=== PATIENT | female | born 2005 | race Caucasian/White ===

== ENCOUNTER 2025-05-04 01:10 | Emergency (ER) | payer MEDICAID ==
[~2025-05-04] VITALS: Ht 175.3 cm; Wt 86.4 kg
[2025-05-04 01:41] LABS: URINE HCG NEGATIVE (NEG)
[2025-05-04 01:44] LABS: LEUKOCYTE ESTERASE ,URINE NEGATIVE (Neg); NITRITES, URINE NEGATIVE (Neg); OCCULT BLOOD,URINE TRACE-INTACT (Neg)
[2025-05-04 01:51] LABS: UA COLLECTION TYPE CLN CATCH MIDSTREAM
[2025-05-04 01:57] LABS: MUCUS STRANDS MODERATE /LPF (Neg); SQUAMOUS EPITHELIAL CELL,UR FEW /LPF (FEW)
--- NOTE | 2025-05-04 02:04 | Physician Documentation ---
History of Present Illness ~ Chief Complaint: Complications Stated Complaint: COMPLICATION Time Seen by MD: 02:03 Mode of Arrival: POV HPI Patient presents to the emergency room concern for . Last menstrual cycle one month ago. She was seen at another emergency room with a negative test by urine. She is requesting test by blood. She has reported some bleeding that began in the last two days in his become spotting. Denies any pain. Last Menstrual Period: Mar 27, 2025 Medication Reconciliation Allergies: Coded Allergies: No Known Allergies (Unverified , 05/04/25) Past Medical History Last Menstrual Period: Mar 27, 2025 Review of Systems ROS All review of systems negative except as per HPI Physical Exam Physical Exam Vital Signs: Temperature: 98.2, Heart Rate: 82, Respiratory Rate: 15, BP: 120/77, Pulse Oximetry: 100, Weight: 86.360 Oxygen Flow Rate: 0 Physical Exam General: Patient is awake, alert, oriented x4 in no acute distress and well appearing.~ Head: Normocephalic and atraumatic. Eyes: Conjunctival normal. EOMI. PERRL. ENT: Mucous membranes moist. Neck: Supple, trachea is midline. Chest: Clear to auscultation bilaterally without rales, rhonchi, or wheezes. There is no accessory muscle use or retractions. Cardiac: RRR without murmurs, gallops, or rubs. Abd: Soft, nondistended, nontender, with normoactive bowel sounds. No guarding, rebound, or rigidity. Progress Results/Orders Results/Orders Completed Orders - DAYNE HANSEN MD Hcg, Ur Ql (05/04/25 01:28) Ua With Microscopic (05/04/25 01:20) Vital Signs 05/04/25 05/04/25 01:14 01:46 Temp 98.2 Pulse 97 82 Resp 16 15 B/P (MAP) 131/87 120/77 (91) Pulse Ox 98 100 O2 Flow Rate 0 Laboratory Tests Test 05/04/25 01:20 Urine Specimen Description Cln catch midstream Urine Color Yellow Urine Clarity Clear Urine pH 6.0 Urine Specific [place] 1.010 Urine Protein Negative Urine Glucose (UA) Negative Urine Ketones Trace H Urine Occult Blood Trace-intact Urine Nitrite Negative Urine Bilirubin Negative Urine Urobilinogen 0.2 Urine Leukocyte Esterase Negative Urine RBC 0-2 Urine WBC 0-4 Urine Squamous Epithelial Cells Few Urine Bacteria Few Urine Mucus Moderate Volume Urine Centrifuged 10 ml Urine HCG, Qualitative Negative Urine Comment Medical Decision Making Findings Patient presents to the emergency room with vaginal spotting. Differentials include but are not limited to menstrual cycle, miscarriage, ectopic therefore urinalysis ordered which was negative for . He had not suspect ectopic . Discussed follow up with the patient. Departure Disposition: HOME / SELF CARE / HOMELESS Impression: Primary Impression: Vaginal spotting Condition: Stable Discharge Instructions: Vaginal Bleeding During , First Trimester, [id number] Additional Instructions: Your test was negative today. Repeat in one-week. Referrals: NO PRIMARY CARE PROVIDER (PCP) Signature Scribe Signature: No scribe Attestation: The note accurately reflects work and decisions made by me.Dayne Hansen MD 05/04/25 02:16 DAYNE HANSEN MD May 04, 2025 02:04
[2025-05-04 02:20] VITALS: BP 120/70; PULSE 90; RESP 15; TEMP 98.2; O2SAT 100
== END 2025-05-04 02:23 | disposition home or self-care (01) ==
LOC: ER 01:11
DX: N93.9 Abnormal uterine and vaginal bleeding, unspecified (principal)
CPT/HCPCS: 81001; 81025; 99283